=== PATIENT | male | born 1995 | race African-American/Black ===

== ENCOUNTER 2019-09-03 08:42 | Emergency (ER) | payer OTHER ==
[2019-09-03] MEDS ORDERED: Ketorolac *IM* INJ* 60 MG/2 ML VIAL IM ONE (09:30)
--- NOTE | 2019-09-03 09:32 | ED ---
Back Pain - HPI Summary HPI Summary: Pt. is a 26 y.o male who presents to the ER for low back pain x 1 day. Pt. notes he worked out at the gym and was carrying heavy back pain yesterday. He does not recall any specific injury or fall. Pt. notes he woke up with acute low back pain. Denies fever, urinary sxs, abd. pain, testicle pain. No past hx. Sxs are mild in severity. No modifying factors. - History of Current Complaint Chief Complaint: EDBackInjuryPain Stated Complaint: BACK PAIN PER PT Time Seen by Provider: 09/03/19 08:51 Hx Obtained From: Patient Pain Intensity: 8 - Allergies/Home Medications Allergies/Adverse Reactions: Allergies Allergy/AdvReac Type Severity Reaction Status Date / Time bupropion [From Wellbutrin] Allergy Rash Verified 09/03/19 08:49 PMH/Surg Hx/FS Hx/Imm Hx Previously Healthy: Yes Infectious Disease History: No Infectious Disease History: Denies: Traveled Outside the [place] in Last 30 Days - Family History Known Family History: Positive: Non-Contributory - Social History Occupation: Student Lives: Dormitory/Roommates Review of Systems Constitutional: Negative Negative: Fever ENT: Negative Cardiovascular: Negative Respiratory: Negative Gastrointestinal: Negative Genitourinary: Negative Positive: Other - low back pain Neurological/Mental Status: Negative Negative: Weakness, Paresthesia, Numbness All Other Systems Reviewed And Are Negative: Yes Physical Exam Triage Information Reviewed: Yes Vital Signs On Initial Exam: Initial Vitals Temp Pulse Resp BP Pulse Ox 97.8 F 70 18 141/74 98 09/03/19 08:45 09/03/19 08:45 09/03/19 08:45 09/03/19 08:45 09/03/19 08:45 Vital Signs Reviewed: Yes Appearance: Positive: Well-Appearing - Pt. sitting up in bed in NAD. Appears uncomfortable but nontoxic. Skin: Positive: Warm, Dry Head/Face: Positive: Normal Head/Face Inspection Eyes: Positive: Normal, EOMI Neck: Positive: Supple Respiratory/Lung Sounds: Positive: Clear to Auscultation, Breath Sounds Present Cardiovascular: Positive: Normal, RRR Abdomen Description: Positive: Nontender, Soft Musculoskeletal: Positive: Normal, Strength/ROM Intact, Other - 5/5 strength in LEs. Bilateral paraspinal pain to lumbar region. Neurological: Positive: Normal, CN Intact II-III Psychiatric: Positive: Affect/Mood Appropriate Procedures - Sedation Patient Received Moderate/Deep Sedation with Procedure: No Diagnostics - Vital Signs Vital Signs Temp Pulse Resp BP Pulse Ox 09/03/19 08:45 97.8 F 70 18 141/74 98 - Laboratory Lab Statement: Any lab studies that have been ordered have been reviewed, and results considered in the medical decision making process. Back Pain Course/Dx - Course Course Of Treatment: Pt. with acute onset low back pain. Afebrile. NO neuro deficits. Ambulatory. Toradol given for pain. Possible kidney stone given acute onset but u/a negative for RBCs. On re-exam pt. feeling much better. Suspect muscular etiology. Continue NSAIDS. Apply heat. To r.u with [facility] if sxs persist. Pt. understands and agrees with plan. - Diagnoses Differential Diagnosis/HQI/PQRI: Positive: Renal Colic, Strain, Sprain Provider Diagnoses: Acute low back pain Discharge ED - Sign-Out/Discharge Documenting (check all that apply): Patient Departure - Discharge Plan Condition: Improved Disposition: HOME Patient Education Materials: Low Back Strain (ED), Lower Back Exercises (ED) Forms: *School Release Referrals: [facility] - Sandeep HAN [Primary Care Provider] - Additional Instructions: Schedule follow up appointment with [facility] within one week Apply warm compresses Motrin (ibuprofen) 600mg every 6 hours for pain as directed Gentle stretching Return to ER if symptoms change or worsen - Billing Disposition and Condition Condition: IMPROVED Disposition: Home - Attestation Statements Provider Attestation: I was available for consultation for this patient. I did not evaluate the patient or participate in any medical decision making or disposition decisions unless I am specifically named in the chart as having consulted on the patient. If I have consulted on the patient, please see my own ED note on the patient encounter. Benoit Patel MD
[2019-09-03 10:19] LABS: Urine Appearance Clear; Urine Bilirubin Negative (Negative); Urine Blood Negative (Negative); Urine Color Yellow; Urine Glucose Negative (Negative); Urine Ketones Negative (Negative); Urine Nitrite Negative (Negative); Urine Protein Negative (Negative); Urine Specific Gravity 1.018 (1.010-1.030); Urine Urobilinogen Negative (Negative)
[2019-09-03 13:20] VITALS: BP 126/73
== END 2019-09-03 11:29 | disposition home or self-care (01) ==
LOC: ED 08:42
DX: M54.5 Low back pain (principal); Z88.8 Allergy status to other drugs, medicaments and biological substances
CPT/HCPCS: 81003; 96372; 99281; J1885